=== PATIENT | female | born 2000 | race African-American/Black ===

== ENCOUNTER 2021-10-07 16:59 | Emergency (ER) | payer OTHER, SELFPAY | END 2021-10-07 17:17 | disposition home or self-care (01) | LOC: ERS 16:59 | DX: S00.83XA Contusion of other part of head, initial encounter (principal); W50.0XXA Accidental hit or strike by another person, initial encounter | CPT/HCPCS: 99283 ==

== ENCOUNTER 2021-10-22 17:42 | Emergency (ER) | payer SELFPAY ==
[2021-10-22] MEDS ORDERED: diphenhydrAMINE 25 MG CAP ONE (18:05)
[2021-10-22] MEDS ORDERED: Acetaminophen 500 MG TAB ONE (18:05)
[2021-10-22] MEDS ORDERED: Prochlorperazine Maleate 5 MG TAB ONE (18:08)
== END 2021-10-22 18:21 | disposition home or self-care (01) ==
LOC: ERS 17:42
DX: R51.9 Headache, unspecified (principal); F17.290 Nicotine dependence, other tobacco product, uncomplicated
CPT/HCPCS: 99283; Q0164

== ENCOUNTER 2021-10-25 01:00 | Emergency (ER) | payer SELFPAY | END 2021-10-25 01:53 | disposition left against medical advice (07) | LOC: ERS 01:00 | DX: Z53.21 Procedure and treatment not carried out due to patient leaving prior to being seen by health care provider (principal) ==